=== PATIENT | male | born 1970 | race Caucasian/White ===

== ENCOUNTER 2016-05-11 07:00 | Day surgery (SDC) | payer OTHER ==
[~2016-05-11] VITALS: Ht 172.7 cm; Wt 102.0 kg
[~2016-05-11 07:00] MED LIST: 0.9% Sodium Chloride 1,000 ML IV SCH; CEPH500C PO; GLPZ5T PO; METF500T4 PO; SULF20OR7 PO; Sodium Chloride LOK Flush 10 mL Syringe IV PRN; fentaNYL-PF 50 mCg/mL 2 mL Inj IVPUSH PRN
[2016-05-11] MEDS ORDERED: INSU100I13 SUBQ (07:39)
[2016-05-11] MEDS ORDERED: OMEP20CA11 PO (07:39)
[2016-05-11] MEDS ORDERED: INSU3INS3 SUBQ (07:39)
[2016-05-11] MEDS ORDERED: LISI1TAB7 PO (07:39)
[2016-05-11] MEDS ORDERED: GABA-500 PO (07:39)
[2016-05-11 07:40] VITALS: BP 132/96; PULSE 75; RESP 16; O2SAT 96
--- NOTE | 2016-05-11 08:29 | PCM.ENDEGD ---
EGD Date of Service: May 11, 2016 Physician Harley Ahn MD Indication for Procedure Esophagitis Post Procedure Dx & Findings: Mcginnis's esophagus Procedure Esophagogastroduodenoscopy PROCEDURE IN DETAIL: The patient was placed in left lateral decubitus position. Bite block was placed. Scope lubricated, placed in posterior pharynx, passed through the cricopharyngeus and esophagus, slowly advanced the entire length of the gastric pouch, pylorus was identified, scope passed through the pylorus and descending portion of duodenum, withdrawn in the antrum, retroflexed upon itself for view of fundus and cardia. Scope was then withdrawn through the oropharynx. In the esophagus, there was islands of salmon-colored mucosa consistent with Mcginnis's esophagus of 4 cm length. Four-quadrant biopsy obtained every 2 cm. Narrow banding use. There was no ulcers masses erosion or mucosa abnormalities. Stomach was unremarkable. Retroflexion was done. Stomach was easily inflatable and the fluid will using air. Cardia antrum pylorus body fundus were all unremarkable. I advanced to distal Duodenum and the mucosa showed normal villous structure with normal folds. Impression Mcginnis's esophagus 4 cm Recommendation Repeat EGD 3 years Continue acid suppression indefinitely with PPI. Presedation Assessment Risks and Benefits Informed consent was obtained from the patient after all risks and benefits including but not limited to drug reaction, infection, pain, bleeding, perforation, as well as alternatives were discussed. Patient monitoring Continuous pulse oximetry, cardiac monitoring, blood pressure monitoring, IV access, and oxygen at 2L per nasal cannula. Periprocedural Fentanyl: Fentanyl 150mcg Incrementally Midazolam: Midazolam 7mg Incrementally Complications There were no periprocedural complications identified. Post Procedure Plan Post Procedure Recommendations 1. Restrict activities today. 2. Resume normal activities in the morning. 3. Resume medications. 4. GERD behavioral modification: - Avoid fatty, acidic, spicy, large meals - Do not lie down after meals - Do not eat or drink anything for at least 2 1/2 hours before going to bed at night - Discontinue tobacco and alcohol - Decrease or avoid caffeine - Avoid chocolate and mints - Decrease weight - Avoid aspirin and non steroidal anti-inflammatory agents (NSAID) such as Aleve, Advil, Mobic, Naproxen, Ibuprofen, etc 5. Add proton pump inhibitor. Take 30 minutes before 1st meal of the day. 6. Patient informed of normal post procedure side effects as bloating, drowsiness, blood streaking in the stool 7. If gastric biopsy reveal H.pylori, continue with appropriate treatment 8. If small bowel biopsy reveals celiac, continue with appropriate treatment 9. Please don't hesitate to call me with any questions Harley Ahn MD May 11, 2016 08:29
[2016-05-11 08:49] VITALS: BP 147/86; PULSE 79; RESP 16; O2SAT 92
--- NOTE | 2016-05-11 08:53 | PCM.ENDCOL ---
Colonoscopy Date of Service: May 11, 2016 Physician Harley Ahn MD Indication for Procedure History of polyp Post Procedure Dx & Findings: Colon polyp diverticula normal appearing anastomosis site Procedure Colonoscopy Prep adequate Withdrawal 11 minutes PROCEDURE IN DETAIL: After unremarkable rectal examination Olympus video colonoscope was inserted into patient's anal canal was advanced to cecum. Landmarks identified including the ileocecal valve and appendiceal orifice. Scope was withdrawn systematically. There was a 3 mm polyp which was resected completely using cold snare in the remnant of the sigmoid colon. An anastomosis site was visualized and there was no masses ulcers or erosions. There was a couple of medium sized diverticuli in the remnants of the sigmoid colon. The mucosa of the cecum, ascending, transverse, descending, sigmoid, rectal mucosa lined with whitish, pink, smooth, glistening, normal-appearing mucosa, normal fine branching, underlying vascularity, normal haustra. The patient tolerated procedure and was transported to observation area. In the rectum retroflexion was done which showed hemorrhoids and anal canal was inspected carefully on the way out and hemorrhoids noted. Impression Personal history of polyp Polyp status post complete removal Normal-appearing anastomosis site Few medium sized diverticuli Hemorrhoids Recommendation Repeat colonoscopy 5 years. Diverticular diet. Presedation Assessment Risks and Benefits Informed consent was obtained from the patient after all risks and benefits including but not limited to drug reaction, infection, pain, bleeding, perforation, as well as alternatives were discussed. Patient monitoring Continuous pulse oximetry, cardiac monitoring, blood pressure monitoring, IV access, and oxygen at 2L per nasal cannula. Periprocedural Fentanyl: Fentanyl 25mcg Midazolam: Midazolam 1mg Incrementally Complications There were no periprocedural complications identified. Post Procedure Plan Post Procedure Recommendations 1. Restrict activities today. 2. Resume normal activities in the morning. 3. Resume medications. 4. Patient informed of normal post procedure side effects as bloating, drowsiness, blood streaking in the stool. 5. average risk CRCS. If colon polyps come back as: -Hyperplastic- can repeat colonoscopy in 10 years -Tubular adenoma- repeat colonoscopy in 5 years -Tubulovillous/villous adenoma- repeat colonoscopy in 3 years -If any dysplasia- return to clinic as soon as possible 6. Please don't hesitate to call me with any questions. Harley Ahn MD May 11, 2016 08:53
[2016-05-11 08:59] VITALS: BP 127/82; PULSE 84; RESP 16; O2SAT 100
[2016-05-11 09:09] VITALS: BP 142/88; PULSE 77; RESP 16; O2SAT 96
--- NOTE | 2016-05-12 13:21 | PATH ---
SURGICAL PATHOLOGY Attending Physician:Harley Ahn M.D. CASE STATUS: Signed Out PATIENT NAME: SMITH LR PID: [id number] : 1970 DATE COLLECTED:05/11/2016 20:11 SPECIMEN: 1: Esophagus, Biopsy 2: Colon, Biopsy CLINICAL HISTORY: 1. DISTAL ESOPHAGUS 2. SIGMOID COLON POLYP FINAL DIAGNOSIS: 1. Biopsy Distal Esophagus: Squamous mucosa and gastric cardia-type mucosa positive for specialized metaplasia of Mcginnis's type esophagus. Negative for dysplasia and malignancy. Eosinophils are not increased. 2. Sigmoid Colon Polyp: Tubular adenoma. ICD10 K22.70 GROSS DESCRIPTION: The specimen is received in two formalin filled containers labeled with the patient's name. 1). The specimen is sublabeled "distal esophagus" and consists of 4 portions of tissue which aggregate to 0.3 x 0.3 x 0.2 CM. The specimen is entirely submitted in cassette 1A. 2). The specimen is sublabeled "sigmoid colon polyp" and consists of 2 portions of tissue which aggregate to 0.3 x 0.2 x 0.2 CM. The specimen is entirely submitted in cassette 2A. 05/11/2016 [facility] ICD-9 CODES: CPT CODES: 1: 72806 2: 89004 Electronically Signed Out Tiago Norris MD [facility], [place] [address] Technical component performed at [facility], [address] [place] [address] [address], [place], [address]
== END 2016-05-11 23:59 | disposition home or self-care (01) ==
LOC: END 07:00
PROVIDERS: ATTEND Internal Medicine
DX: Z12.11 Encounter for screening for malignant neoplasm of colon (principal); Z86.010 Personal history of colon polyps; D12.5 Benign neoplasm of sigmoid colon; K22.70 Barrett's esophagus without dysplasia; K57.90 Diverticulosis of intestine, part unspecified, without perforation or abscess without bleeding; K64.9 Unspecified hemorrhoids; I10 Essential (primary) hypertension; E11.9 Type 2 diabetes mellitus without complications
CPT/HCPCS: 43239; 45385; 99153; G0500; J2250; J7030